=== PATIENT | female | born 1965 | race Caucasian/White ===

== ENCOUNTER → 2017-10-18 | Outpatient (CLI) | payer OTHER ==
--- NOTE | 2017-10-18 11:35 | BD ---
EXAMINATION TYPE: MG DEXA axial skeleton. DATE OF EXAM: 10/18/2017 COMPARISON: NONE CLINICAL HISTORY: Osteoporosis screening. Postmenopausal female. Height: 5'7 Weight: 233 FRAX RISK QUESTIONS: Alcohol (3 or more units per day): no Family History (Parent hip fracture): no Glucocorticoids (More than 3mos): no (Ex: prednisone, prednisolone, methylprednisolone, dexamethasone, and hydrocortisone). History of Fracture in Adulthood: no Secondary Osteoporosis: 1. Type 1 Diabetes: no 2. Hyperthyroidism: no 3. Menopause before 45: no 4. Malnutrition: no 5. Chronic liver disease: no Rheumatoid Arthritis: no Current Tobacco Use: no RISK FACTORS HISTORY OF: Family History of Osteoporosis: y Active: n Diet low in dairy products/other sources of calcium: y Postmenopausal woman: y MEDICATIONS: Additional Medications: type 2 diabetes, cholesterol ,ventolin Additional History: breast cancer 2012 EXAM MEASUREMENTS: Bone mineral densitometry was performed using the [employer] System. Bone mineral density as measured about the Lumbar spine is: ----- L1-L4(G/cm2): 1.270 T Score Values are as follows: ----- L2: 0.8 ----- L3: 1.0 ----- L4: -0.1 ----- L1-L4: 0.7 Bone mineral density about the R hip (g/cm2): 1.185 Bone mineral density about the L hip (g/cm2): 1.174 T Score values are as follows: -----R Neck: 1.1 -----L Neck: 1.0 -----R Total: 1.5 -----L Total: 1.7 IMPRESSION: Normal (Values between +1 and -1 indicate normal bone mass). Consider repeating this study in 5 year s or sooner if there is some new clinical indication. NOTE: T-SCORE=SD OF THE YOUNG ADULT MEAN.
== END | disposition home or self-care (01) ==
LOC: RADBDWWP 09:10
PROVIDERS: ATTEND Family Medicine
DX: Z78.0 Asymptomatic menopausal state (principal)
CPT/HCPCS: 77080

== ENCOUNTER → 2019-07-04 | Outpatient (CLI) | payer OTHER ==
--- NOTE | 2019-07-04 08:08 | CT ---
EXAMINATION TYPE: CT brain wo con DATE OF EXAM: 07/04/2019 COMPARISON: None HISTORY: Headache CT DLP: 1090.[address] of the brain was performed. The ventricles, basal cisterns and sulci overlying the cerebral convexities demonstrate mild enlargem ent. There is no evidence for intracranial hemorrhage or sulcal effacement. There is decreased attenuation about the periventricular white matter and deep white matter of both c erebral hemispheres, compatible with chronic small vessel ischemia. Differential diagnosis does inclu de demyelination. No mass effects are seen.No midline shift. Osseous calvarium is intact. If symptoms persist consider MRI. IMPRESSION: 1. Age related atrophic and chronic small vessel ischemic change without acute intracranial process s een at this time.
== END | disposition home or self-care (01) ==
LOC: RADCTMAIN 07:17
PROVIDERS: ATTEND Family Medicine
DX: G31.1 Senile degeneration of brain, not elsewhere classified (principal); I67.82 Cerebral ischemia
CPT/HCPCS: 70450

== ENCOUNTER → 2019-09-19 | Outpatient (CLI) | payer OTHER ==
[2019-09-19 07:38] LABS: African American GFR (CKD) >90 (>60 ml/min/1.73 sqM); Blood Urea Nitrogen 15 mg/dL (7-17); Non-African American GFR(CKD) >90 (>60 ml/min/1.73 sqM)
--- NOTE | 2019-09-19 08:55 | CT ---
EXAMINATION TYPE: CT chest w con DATE OF EXAM: 09/19/2019 COMPARISON: 10/14/2014 HISTORY: 53-year-old female Chest pain, dyspnea TECHNIQUE: Contiguous axial scanning of the chest after the administration of 100 ml mL of Isovue 300 . Coronal/sagittal reconstructions performed. CT DLP: 713mGycm. Automatic exposure control utilized for a dose reduction. FINDINGS: Heart size without pericardial effusion. Aorta normal caliber with variant direct takeoff of the left vertebral artery directly from the aorti c arch. No thoracic lymphadenopathy by CT size criteria. Lungs show some strandy areas of scarring anteromedial right mid lung. Stable 4 mm subpleural pulmonary nodule posterior right upper lobe compared to 2015 compatible with a benign etiology. Stable 4 mm left lower lobe pulmonary nodule, image 39. 3 mm posterior left upper lobe pulmonary nodule, axial image 11 not seen previously. Some mild mosaic attenuation in the right middle lobe. No consolidation or pleural effusion. Visualized upper abdomen shows low-density of the liver, suspected to represent fatty infiltration. C holecystectomy clips. Bones: No osseous destructive process. Incidental bifid right-sided sixth rib. IMPRESSION: 1. A few pulmonary nodules measuring up to 4 mm. One of these is new in the left upper lobe measuring 3 mm. Given small size, a 1 year follow-up CT is recommended to ensure stability. 2. Stable strandy scarring particularly in the right middle lobe. There is some mosaic attenuation he re as well. This may reflect underlying small airways disease.
== END | disposition home or self-care (01) ==
LOC: RADCTMAIN 06:57
PROVIDERS: ATTEND Family Medicine
DX: R91.8 Other nonspecific abnormal finding of lung field (principal); R06.00 Dyspnea, unspecified; M54.6 Pain in thoracic spine; Z85.3 Personal history of malignant neoplasm of breast
CPT/HCPCS: 82565; 84520; 71260; 36415; Q9967

== ENCOUNTER → 2020-02-13 | Outpatient (CLI) | payer OTHER ==
--- NOTE | 2020-02-13 12:43 | MR ---
EXAMINATION TYPE: MR brain wo/w con DATE OF EXAM: 02/13/2020 12:38 PM COMPARISON: NONE HISTORY: Possible MS, weakness, numbness FINDINGS: The ventricles, basal cisterns and sulci overlying the cerebral convexities are mildly enlarged. There is evidence of mild periventricular white matter ischemic demyelination. Remote deep white matter insults are also noted. Scattered small nonspecific white matter changes ju xtacortical lesions noted within both cerebral hemispheres estimated at 12-16 bilaterally. Demyelinat ion not excluded. No acute edema is seen on diffusion weighted imaging. There is no evidence for midline shift or mass effect. Acute intracranial hemorrhage or extra-axial collection is not evident. The paranasal sinuses and mastoid air cells are well-aerated. IMPRESSION: Age-related atrophic and chronic small vessel ischemic change. No acute intracranial process at this time. Demyelination difficult to exclude.
== END | disposition home or self-care (01) ==
LOC: RADMRIMAIN 11:28
PROVIDERS: ATTEND Family Medicine
DX: I67.82 Cerebral ischemia (principal); G31.9 Degenerative disease of nervous system, unspecified; G25.2 Other specified forms of tremor
CPT/HCPCS: 70553; A9585

== ENCOUNTER 2020-03-18 07:16 | Day surgery (SDC) | payer OTHER ==
[2020-03-13 12:59] VITALS: BMI 33.4
[~2020-03-18 07:16] MED LIST: LACTATED RINGERS 1,000 ML IV SCH; LIDOCAINE 1% (10MG/ML) FOR IV START INTRADERMA PRN
[2020-03-18 07:38] VITALS: TEMP 97.2
[2020-03-18 07:56] LABS: Glucose,Whole Blood 152 mg/dL (75-99)
[2020-03-18] MEDS ORDERED: PROPOFOL 10 MG/ML 20 ML VIAL IV ONE (08:02)
[2020-03-18] MEDS ORDERED: LIDOCAINE 1% INJ 10MG/ML (20 ML MDV) ONE (08:02)
--- NOTE | 2020-03-18 08:12 | P.GSHP ---
History of Present Illness H&P Date: 03/18/20 Chief Complaint: Dysphagia, change in bowel habits 54-year-old female known to our service. Last colonoscopy years ago. Family history of colon cancer in 2 aunts and a grandmother. History of polyps. Last colonoscopy just showed hyperplastic polyps. Colonoscopy prior to that unclear the type of polyps. Patient describes some recent constipation and incomplete evacuation. Also with complaints of dysphagia. Past Medical History Past Medical History: Asthma, Cancer, Diabetes Mellitus, Hyperlipidemia, Neurologic Disorder Additional Past Medical History / Comment(s): Hx Occipital neuralgia; c/o severe pain in posterior head, poss focal migraines, seeing Neurologist. Hx Breast cancer 2012, took po Rx. c/o dysphagia w/ food & fluids. History of Any Multi-Drug Resistant Organisms: None Reported Past Surgical History: Breast Surgery, Section, Cholecystectomy, Hysterectomy Additional Past Surgical History / Comment(s): Masectomy Bilat w/ reconstruction, CRISTI procedure, TAHBSO, Removal leukoplakia w/ Septoplasty. Past Anesthesia/Blood Transfusion Reactions: No Reported Reaction Smoking Status: Current some day smoker - Past Family History Mother Family Medical History: Cancer Additional Family Medical History / Comment(s): larynx cancer Father Family Medical History: Myocardial Infarction ([place]) Medications and Allergies Home Medications Medication Instructions Recorded Confirmed Type ALPRAZolam 0.5 mg PO BID PRN 10/23/14 03/18/20 History Albuterol Inhaler (Mhu) [Ventolin 2 puff INHALATION Q4H PRN 10/23/14 03/18/20 History Inhaler] Furosemide [Lasix] 20 mg PO DAILY PRN 10/23/14 03/18/20 History Atorvastatin [Lipitor] 80 mg PO HS 08/27/15 03/18/20 History Aspirin [Adult Low Dose Aspirin EC] 81 mg PO DAILY 03/13/20 03/18/20 History Cetirizine HCl [Zyrtec] 10 mg PO DAILY 03/13/20 03/18/20 History Docusate [Colace] 100 mg PO DAILY 03/13/20 03/18/20 History Dulaglutide [Trulicity] 1.5 mg SQ MO 03/13/20 03/18/20 History Gabapentin [Neurontin] 600 mg PO BID 03/13/20 03/18/20 History Gabapentin [Neurontin] 900 mg PO HS 03/13/20 03/18/20 History Ibuprofen [Motrin Ib] 200 mg PO Q8H PRN 03/13/20 03/18/20 History Vilazodone HCl [Viibryd] 20 mg PO DAILY 03/13/20 03/18/20 History Allergies Allergy/AdvReac Type Severity Reaction Status Date / Time adhesive tape Allergy Rash/Hives Verified 03/18/20 07:33 latex Allergy Rash/Hives Verified 03/18/20 07:33 Surgical - Exam Vital Signs Temp Pulse Resp BP Pulse Ox 97.2 F L 97 16 136/68 96 03/18/20 07:37 03/18/20 07:37 03/18/20 07:37 03/18/20 07:37 03/18/20 07:37 Physical exam: General: Well-developed, well-nourished HEENT: Normocephalic, sclerae nonicteric Abdomen: Nontender, nondistended Extremities: No edema Neuro: Alert and oriented Results - Labs Abnormal Lab Results - Last 24 Hours (Table) 03/18/20 Range/Units 07:47 POC Glucose (mg/dL) 152 H (75-99) mg/dL Assessment and Plan (1) Change in bowel habits Narrative/Plan: Will proceed with upper and lower endoscopy at this time. Current Visit: Yes Status: Acute Code(s): R19.4 - CHANGE IN BOWEL HABIT SNOMED Code(s): 313244349
--- NOTE | 2020-03-18 08:33 | P.PCN ---
Date of Procedure: 03/18/20 Procedure(s) Performed: PREOPERATIVE DIAGNOSIS: Dysphagia, change in bowel habits POSTOPERATIVE DIAGNOSIS: Mild gastritis, normal colon PROCEDURE: 1. EGD with biopsy 2. Colonoscopy ANESTHESIA: MAC SURGEON: Shashank Hendrix M.D. SPECIMENS: Antrum ENDOSCOPIC PROCEDURE: The patient was on the endoscopy table in the left decubitus position. The Olympus gastroscope was inserted into the oropharynx and passed under direct visualization to the region of the third portion of the duodenum. From that point the scope was slowly withdrawn inspecting all surfaces carefully. There were no neoplastic inflammatory or polypoid lesions throughout the duodenum. The pylorus was widely patent. The stomach was car efully inspected. There was mild gastritis present. A biopsy of the antrum took place to rule out H. pylori. Retroflexion revealed a normal hiatus. The esophagus was then carefully examined. There were no neoplastic inflammatory or polypoid lesions throughout the visualized esophagus. The patient was kept on the endoscopy table in the left decubitus position. The Olympus colonoscope was inserted into the anus and passed under direct visualization to the base of the cecum. The appendiceal orifice was visualized. From that point the scope was slowly withdrawn inspecting all surfaces carefully. There were no neoplastic inflammatory or polypoid lesions throughout the cecum, ascending, transverse, descending, sigmoid and rectum. There was no visible diverticulosis noted. Digital rectal examination was normal. The patient was taken to the recovery room in stable condition per anesthesia guidelines. RECOMMENDATIONS: Increase fiber. Consider modified barium swallow/esophagram if symptoms of dysphagia/aspiration persist.
[2020-03-18 08:48] LABS: Glucose,Whole Blood 116 mg/dL (75-99)
[2020-03-18 08:52] VITALS: BP 122/80; PULSE 77; RESP 16
== END 2020-03-18 09:08 | disposition home or self-care (01) ==
LOC: ORWHC2ENDO 07:16
PROVIDERS: ATTEND Surgery
DX: K29.70 Gastritis, unspecified, without bleeding (principal); R19.4 Change in bowel habit; Z86.010 Personal history of colon polyps; Z80.0 Family history of malignant neoplasm of digestive organs; E78.5 Hyperlipidemia, unspecified; E11.42 Type 2 diabetes mellitus with diabetic polyneuropathy; J45.909 Unspecified asthma, uncomplicated; F17.200 Nicotine dependence, unspecified, uncomplicated; Z91.040 Latex allergy status; Z91.048 Other nonmedicinal substance allergy status; Z79.1 Long term (current) use of non-steroidal anti-inflammatories (NSAID); Z79.82 Long term (current) use of aspirin; Z79.84 Long term (current) use of oral hypoglycemic drugs; Z79.899 Other long term (current) drug therapy; Z90.49 Acquired absence of other specified parts of digestive tract; Z90.710 Acquired absence of both cervix and uterus; Z90.13 Acquired absence of bilateral breasts and nipples; Z98.890 Other specified postprocedural states; Z85.3 Personal history of malignant neoplasm of breast; Z82.49 Family history of ischemic heart disease and other diseases of the circulatory system
CPT/HCPCS: 88305; 45378; 43239; J2001; J2704

== ENCOUNTER → 2020-03-25 | Outpatient (CLI) | payer OTHER ==
[2020-03-25 10:45] LABS: Basophils # (A) 0.1 k/uL (0-0.2); Basophils % (A) 1 %; Eosinophils # (A) 0.1 k/uL (0-0.7); Eosinophils % (A) 2 %; HCT 46.9 % (34.0-46.0); HGB 15.4 gm/dL (11.4-16.0); Lymphocytes # (A) 1.7 k/uL (1.0-4.8); Lymphocytes % (A) 32 %; MCH 29.3 pg (25.0-35.0); MCHC 32.9 g/dL (31.0-37.0); MCV 89.1 fL (80.0-100.0); Mean Platelet Volume 9.2; Monocytes # (A) 0.3 k/uL (0-1.0); Monocytes % (A) 5 %; Neutrophils # (A) 3.1 k/uL (1.3-7.7); Neutrophils % (A) 59 %; Platelet Count 189 k/uL (150-450); RBC 5.26 m/uL (3.80-5.40); RDW 13.1 % (11.5-15.5); WBC 5.2 k/uL (3.8-10.6)
[2020-03-25 11:10] LABS: Reticulocyte % 2.1 % (0.5-2.0)
[2020-03-25 17:27] LABS: % Iron Saturation 30.42 (12.00-45.00); African American GFR (CKD) 114.6 (60.0-200.0); Albumin 4.4 g/dL (3.80-4.90); Anion Gap 6.3 mmol/L (4.00-12.00); BUN/Creat Ratio 15.71 Ratio (12.00-20.00); Calcium 9.7 mg/dL (8.7-10.3); Carbon Dioxide 29.7 mmol/L (21.6-31.8); Globulin 2.2 g/dL (1.6-3.3); Non-African American GFR(CKD) 98.9 (60.0-200.0); Potassium 4.5 mmol/L (3.5-5.5); Total Bilirubin 0.5 mg/dL (0.2-1.2); Total Protein 6.6 g/dL (6.2-8.2)
[2020-03-25 17:37] LABS: Ferritin 132.1 ng/mL (10.0-291.0)
[2020-03-25 17:38] LABS: Folate, Serum 9.7 ng/mL
[2020-03-25 17:59] LABS: Hepatitis B Core IgM Non-Reactive (Non-Reactive); Hepatitis B Surface AB- Quant 291.2 mIU/mL; Hepatitis B Surface Antibody Reactive (Non-Reactive); Hepatitis B Surface Antigen Non-Reactive (Non-Reactive)
[2020-03-25 18:08] LABS: HIV 2 AB Non-Reactive (Non-Reactive); HIV AB P24 Non-Reactive (Non-Reactive); HIV P24 AG Non-Reactive (Non-Reactive)
[2020-03-25 18:15] LABS: Hemoglobin A1C 6.5 % (4.0-6.0)
[2020-03-26 06:01] LABS: Varicella IgM Antibody 0.47 INDEX (<=0.90)
[2020-03-27 13:33] LABS: IgG - CSF 2.7 mg/dL (0.0 - 3.4); IgG/Albumin Index (CSF) 0.49 (0.00 - 0.77); Immunoglobulin G 897 mg/dL (700 - 1600)
[2020-03-28 07:33] LABS: Vit B1(Thiamine) 61 ug/L (38-122)
== END | disposition home or self-care (01) ==
LOC: LABWHC1 09:31
PROVIDERS: ATTEND Psychiatry & Neurology Neurology
DX: G35 Multiple sclerosis (principal); D64.9 Anemia, unspecified; R53.83 Other fatigue; R90.82 White matter disease, unspecified
CPT/HCPCS: 36415; 80053; 82040; 82042; 82306; 82607; 82668; 82728; 82746; 82784; 83036; 83540; 83550; 83916; 84207; 84425; 84439; 84443; 84466; 84481; 84591; 85025; 85045; 86704; 86705; 86706; 86787; 87340; 87390

== ENCOUNTER → 2020-10-31 | Outpatient (CLI) | payer OTHER, MEDICARE ==
[2020-10-31 14:37] LABS: Reticulocyte % 1.83 % (0.10-1.80)
[2020-10-31 16:16] LABS: Anti-Smith Ab Interp NEGATIVE (NEGATIVE); Cyclic Citrull Pep IgG Unit <0.5 U/mL; Cyclic Citrullinated Pep IgG NEGATIVE (NEGATIVE); DNA Double-Stranded Indetermin (NEGATIVE); JO-1 IgG Antibody <0.2 AI; Scleroderma SC-70 Ab 1.3 AI
[2020-11-03 11:22] LABS: ANA Pattern See Footnote
== END | disposition home or self-care (01) ==
LOC: LABWHC1 08:27
PROVIDERS: ATTEND Psychiatry & Neurology Pain Medicine
DX: Z51.81 Encounter for therapeutic drug level monitoring (principal); G35 Multiple sclerosis; R90.82 White matter disease, unspecified; R79.9 Abnormal finding of blood chemistry, unspecified
CPT/HCPCS: 36415; 83516; 85045; 85652; 86038; 86039; 86140; 86200; 86225; 86235

== ENCOUNTER → 2020-11-14 | Outpatient (CLI) | payer MEDICARE, OTHER ==
--- NOTE | 2020-11-15 11:26 | US ---
EXAMINATION TYPE: US carotid duplex BILAT DATE OF EXAM: 11/14/2020 COMPARISON: NONE CLINICAL HISTORY: I65.2 Occlusion and stenosis of carotid artery. Hypercholesteremia. EXAM MEASUREMENTS: RIGHT: Peak Systolic Velocity (PSV) cm/sec ----- Right CCA: 109.0 ----- Right ICA: 95.2 ----- Right ECA: 118.9 ICA/CCA ratio: 0.9 RIGHT: End Diastole cm/sec ----- Right CCA: 32.8 ----- Right ICA: 24.8 ----- Right ECA: 20.4 LEFT: Peak Systolic Velocity (PSV) cm/sec ----- Left CCA: 96.5 ----- Left ICA: 119.8 ----- Left ECA: 99.4 ICA/CCA ratio: 1.2 LEFT: End Diastole cm/sec ----- Left CCA: 31.8 ----- Left ICA: 35.7 ----- Left ECA: 16.3 VERTEBRALS (direction of flow): Right Vertebral: Antegrade Left Vertebral: Antegrade Rhythm: Normal No significant velocity elevations, minimal plaque. No significant focal plaque on grayscale images. IMPRESSION: No hemodynamically significant stenosis identified in either internal carotid artery. Criteria for Assigning % of Stenosis / Diameter reduction (Estimation based on the indirect measurements of the internal carotid artery velocities (ICA PSV). 1. Normal (no stenosis)=ICA PSV < 125 cm/s: ratio < 2.0: ICA EDV<40 cm/s. 2. Less than 50% stenosis=ICA PSV < 125 cm/s: ratio < 2.0: ICA EDV<40 cm/s. 3. 50 to 69% stenosis=ICA PSV of 125 to 230 cm/s: ration 2.0 ? 4.0: ICA EDV 40-100 cm/s. 4. Greater than 70% stenosis to near occlusion= ICA PSV > 230 cm/s: ratio > 4.0: ICA EDV > 100 cm/s. 5. Near occlusion= ICA PSV velocities may be low or undetectable: variable ratio and ICA EDV. 6. Total occlusion=unable to detect flow.
== END | disposition home or self-care (01) ==
LOC: RADUSWWP 16:50
PROVIDERS: ATTEND Psychiatry & Neurology Neurology
DX: E78.00 Pure hypercholesterolemia, unspecified (principal)
CPT/HCPCS: 93880

== ENCOUNTER → 2021-08-12 | Outpatient (CLI) | payer MEDICARE, OTHER ==
--- NOTE | 2021-08-12 11:23 | CT ---
EXAMINATION TYPE: CT chest wo con DATE OF EXAM: 08/12/2021 COMPARISON: 09/19/2019 HISTORY: Lung Nodules, Breast CA CT DLP: 456.8 mGycm. Automated Exposure Control for Dose Reduction was Utilized. TECHNIQUE: CT scan of the thorax is performed without IV contrast. FINDINGS: LUNGS: The lungs are grossly clear, there is consolidative process identified. There is no pleural effusion or pneumothorax seen. The tracheobronchial tree is patent. Subsegmental changes left lung b ase most typical of scar or atelectasis. Vague posterior segment left lower lobe sub-5 mm density lik keisha inflammatory retrospectively stable. Stable subpleural 4 mm posterior right upper lobe pulmonary nodule stable and appears benign. Stable 4 mm left lower lobe pulmonary nodule. Thecal 3 mm posterior left upper lobe pulmonary nodule. MEDIASTINUM: Lack of IV contrast is noted to limit evaluation for mediastinal and especially hilar ad enopathy. There are no definitive greater than 1 cm hilar or mediastinal lymph nodes. No cardiomega ly or pericardial effusion is seen. Atherosclerotic change of the aorta and coronary arteries. OTHER: Postcholecystectomy changes noted. Hypertrophic and degenerative changes of the spine.. IMPRESSION: 1. Stable sub-5 mm bilateral pulmonary nodules unchanged from prior exam. No significant interval aram nge in size. Findings are most likely benign etiology. Additional 12 month annual follow-up could be obtained to confirm stability.
== END | disposition home or self-care (01) ==
LOC: RADCTMAIN 09:08
PROVIDERS: ATTEND Internal Medicine Pulmonary Disease
DX: R91.8 Other nonspecific abnormal finding of lung field (principal); C50.919 Malignant neoplasm of unspecified site of unspecified female breast
CPT/HCPCS: 71250

== ENCOUNTER → 2021-12-08 | Outpatient (CLI) | payer MEDICARE, OTHER ==
[2021-12-08 14:24] LABS: WBC 5.23 X 10*3/uL (4.50-10.00)
[2021-12-08 14:25] LABS: Basophils # (A) 0.02 X 10*3/uL (0.00-0.10); Basophils % (A) 0.4 %; Eosinophils # (A) 0.07 X 10*3/uL (0.04-0.35); Eosinophils % (A) 1.3 %; HCT 40.6 % (37.2-46.3); HGB 13.5 g/dL (12.0-15.0); Immature Grans, Automated 0.2 %; Lymphocytes # (A) 1.47 X 10*3/uL (0.90-5.00); Lymphocytes % (A) 28.1 %; MCH 30.3 pg (27.0-32.0); MCHC 33.3 g/dL (32.0-37.0); Mean Platelet Volume 12.2 fL (9.5-12.2); Monocytes # (A) 0.52 X 10*3/uL (0.20-1.00); Monocytes % (A) 9.9 %; NRBC Per 100 WBC 0 /100 WBCS (0.0-0.0); Neutrophils # (A) 3.14 X 10*3/uL (1.80-7.70); Neutrophils % (A) 60.1 %; Platelet Count 200 X 10*3/uL (140-440); RBC 4.46 X 10*6/uL (4.10-5.20); RDW 13.2 % (11.5-14.5)
[2021-12-08 15:44] LABS: ALT 30 U/L (8-44); AST 32 U/L (13-35); African American GFR (CKD) 118.9 (60.0-200.0); Albumin 4.2 g/dL (3.8-4.9); Albumin/Globulin Ratio 1.75 (1.60-3.17); Alkaline Phosphatase 86 U/L (41-126); BUN/Creat Ratio 20.67 Ratio (12.00-20.00); Blood Urea Nitrogen 12.4 mg/dL (9.0-27.0); Calcium 8.8 mg/dL (8.7-10.3); Chloride 108 mmol/L (96-109); Chol/HDL Ratio 3.78 Ratio; Globulin 2.4 g/dL (1.6-3.3); Glucose 108 mg/dL (70-110); LDL Cholesterol,Calculated 86.1 mg/dL (0.0-131.0); Non-African American GFR(CKD) 102.6 (60.0-200.0); Rheumatoid Factor, Qnt <10 IU/mL (0-15); Sodium 143 mmol/L (135-145); Total Protein 6.6 g/dL (6.2-8.2); VLDL Calculation 19.84 mg/dL (5.00-40.00)
[2021-12-09 00:33] LABS: Anti-Smith Ab Interp NEGATIVE (NEGATIVE); Cyclic Citrull Pep IgG Unit <0.5 U/mL; Cyclic Citrullinated Pep IgG NEGATIVE (NEGATIVE); DNA Double-Stranded Indetermin (NEGATIVE); JO-1 IgG Antibody <0.2 AI; Scleroderma SC-70 Ab 1.8 AI
== END | disposition home or self-care (01) ==
LOC: LABWHC1 09:16
PROVIDERS: ATTEND Nurse Practitioner Family
DX: Z00.01 Encounter for general adult medical examination with abnormal findings (principal); F06.4 Anxiety disorder due to known physiological condition; E78.5 Hyperlipidemia, unspecified; P83.88 Other specified conditions of integument specific to newborn
CPT/HCPCS: 36415; 80053; 80061; 83516; 84443; 85025; 86038; 86039; 86140; 86200; 86225; 86235; 86431

== ENCOUNTER → 2022-01-18 | Outpatient (CLI) | payer MEDICARE, OTHER ==
--- NOTE | 2022-01-18 09:43 | CT ---
EXAMINATION TYPE: CT chest wo con DATE OF EXAM: 01/18/2022 INDICATION: Nonspecific abnormal finding of lung field-pulmonary nodules-per pt CT DLP: 494.4 mGy.cm Automated Exposure Control for Dose Reduction was Utilized. TECHNIQUE AND CONTRAST: CT scan of the chest without IV contrast administration. COMPARISON: CT dated 08/12/2021 FINDINGS: Slightly more prominent nodule along the anterior aspect of the transverse fissure measuring 5 mm com pared to 4 mm previously. Other scattered bilateral pulmonary nodules measuring up to 4 mm, stable si nce September 2019 CT scan consistent with benign nodules. Scattered bilateral linear pulmonary atelec tasis. Unremarkable lungs otherwise. Patent trachea and main bronchi. No pleural or pericardial effusion. No gross cardiomegaly. Minimal arterial and coronary atherosclerotic calcifications. No pathologically enlarged lymph nodes in the chest. Previous cholecystectomy. No aggressive bone lesion. Bifid right s ixth rib. IMPRESSION: Slightly more prominent nodule along the anterior aspect of the transverse fissure measuring 5 mm com pared to 4 mm previously, possibly representing a fissural lymph node. Precautionary follow-up CT sca n in 6 months can be considered. Stable remainder of the previously seen pulmonary nodules. Other incidental findings as described abo ve.
== END | disposition home or self-care (01) ==
LOC: RADCTMAIN 07:31
PROVIDERS: ATTEND Internal Medicine Pulmonary Disease
DX: R91.8 Other nonspecific abnormal finding of lung field (principal)
CPT/HCPCS: 71250

== ENCOUNTER 2022-08-02 11:04 | Emergency (ER) | payer MEDICARE, OTHER ==
[2022-08-02 11:30] VITALS: RESP 18
--- NOTE | 2022-08-02 11:31 | ED ---
General Adult HPI - General Source: patient, RN notes reviewed Mode of arrival: ambulatory Limitations: no limitations <Mauricio Gould - Last Filed: 08/02/22 11:29> <Francis Nuñez - Last Filed: 08/02/22 22:35> - General Stated complaint: lt wrist injury Time Seen by Provider: 08/02/22 11:29 - History of Present Illness Initial comments: 56-year-old female presents emergency Department chief complaint left wrist pain. Patient states she slipped on some blinds [id number] for. Patient fell onto her left wrist. No head injury no loss conscious. Patient was left wrist pain. No paresthesias. (Mauricio Gould) - Related Data Home Medications Medication Instructions Recorded Confirmed ALPRAZolam 0.5 mg PO BID PRN 10/23/14 03/18/20 Albuterol Inhaler [Ventolin 2 puff INHALATION Q4H PRN 10/23/14 03/18/20 Inhaler] Furosemide [Lasix] 20 mg PO DAILY PRN 10/23/14 03/18/20 Atorvastatin [Lipitor] 80 mg PO HS 08/27/15 03/18/20 Aspirin [Adult Low Dose Aspirin EC] 81 mg PO DAILY 03/13/20 03/18/20 Cetirizine HCl [Zyrtec] 10 mg PO DAILY 03/13/20 03/18/20 Docusate [Colace] 100 mg PO DAILY 03/13/20 03/18/20 Dulaglutide [Trulicity] 1.5 mg SQ MO 03/13/20 03/18/20 Gabapentin [Neurontin] 600 mg PO BID 03/13/20 03/18/20 Gabapentin [Neurontin] 900 mg PO HS 03/13/20 03/18/20 Ibuprofen [Motrin Ib] 200 mg PO Q8H PRN 03/13/20 03/18/20 Vilazodone HCl [Viibryd] 20 mg PO DAILY 03/13/20 03/18/20 Previous Rx's Medication Instructions Recorded Ibuprofen [Motrin] 600 mg PO Q8HR PRN #30 tab 08/02/22 Allergies Allergy/AdvReac Type Severity Reaction Status Date / Time adhesive tape Allergy Rash/Hives Verified 08/02/22 11:30 latex Allergy Rash/Hives Verified 08/02/22 11:30 Review of Systems ROS Other: All systems not noted in ROS Statement are negative. <Mauricio Gould M - Last Filed: 08/02/22 11:29> ROS Other: All systems not noted in ROS Statement are negative. <Francis Nuñez - Last Filed: 08/02/22 22:35> ROS Statement: Those systems with pertinent positive or pertinent negative responses have been documented in the HPI. Past Medical History Past Medical History: Diabetes Mellitus, Hyperlipidemia, Neurologic Disorder, Respiratory Disorder Additional Past Medical History / Comment(s): asthma, occipital neuralgia History of Any Multi-Drug Resistant Organisms: None Reported Past Surgical History: Section, Cholecystectomy Additional Past Surgical History / Comment(s): masectomy double, CRISTI procedure, TAHSPO Past Anesthesia/Blood Transfusion Reactions: No Reported Reaction Past Psychological History: Anxiety, Panic Disorder Past Alcohol Use History: None Reported - Past Family History Mother Family Medical History: Cancer Father Family Medical History: Myocardial Infarction ([place]) <Mauricio Gould - Last Filed: 08/02/22 11:29> General Exam General appearance: alert, in no apparent distress Head exam: Present: atraumatic Eye exam: Absent: scleral icterus, conjunctival injection, periorbital swelling Neck exam: Absent: meningismus Respiratory exam: Absent: respiratory distress, accessory muscle use Cardiovascular Exam: Present: regular rate Left Shoulder Exam: Absent: tenderness Upper Arm exam: Absent: tenderness Elbow exam: Present: full ROM. Absent: tenderness, swelling Forearm Wrist exam: Present: tenderness, swelling. Absent: laceration, ecchymosis, deformity, crepitus, dislocation, erythema, tenderness over anatomical snuff box, pain with axial thumb loading Hand Wrist exam: Present: swelling. Absent: erythema Neuro motor exam: Absent: wrist extension intact Neurosensory exam: Present: radial nerve intact, ulnar nerve intact, median nerve intact Vascular: Present: normal capillary refill, radial pulse. Absent: vascular compromise Neurological exam: Present: alert, oriented X3 Psychiatric exam: Present: normal affect, normal mood Skin exam: Present: warm, dry, normal color. Absent: cyanosis, diaphoretic, petechiae, pallor <Francis Nuñez - Last Filed: 08/02/22 22:35> Course Vital Signs 08/02/22 08/02/22 11:28 13:17 Temperature 98 F 98.0 F Pulse Rate 96 80 Respiratory 18 18 Rate Blood Pressure 174/114 147/86 O2 Sat by Pulse 99 96 Oximetry Procedures - Orthopedic Splinting/Casting Injury #1 Side: left Upper Extremity Injury Location: short arm, wrist Upper Extremity Immobilizer: Cl wrap, synthetic pre-padded splint <Francis Nuñez - Last Filed: 08/02/22 22:35> Medical Decision Making <Francis Nuñez - Last Filed: 08/02/22 22:35> - Medical Decision Making Vital signs are stable. Patient was given Toradol for pain. Left wrist x-ray was completed and interpreted by me showing no evidence of fracture. Radiologist interpretation no acute fracture or dislocation. Recommend follow-up study in 7-10 days. Due to pain and swelling, patient was placed in a short arm splint and directed to follow up with orthopedics. Rest ice elevate and Motrin for pain. Patient is agreeable to this plan of care Neurovascularly intact prior to and post splinting. Case discussed with Dr. Galvan Patient has history of diabetes, asthma hyperlipidemia Was pt. sent in by a medical professional or institution? @ No Did you speak to anyone other than the patient for history? @ No Did you review nursing and triage notes? @ Yes I agree Were old charts reviewed? @ No Differential Diagnosis? @ Sprain or strain, fracture, dislocation, musculoskeletal pain, contusion EKG interpreted by me (3pts min.)? @ Not applicable X-rays interpreted by me (1pt min.)? @ Yes as above CT interpreted by me (1pt min.)? @ Not applicable U/S interpreted by me (1pt. min.)? @ Not applicable What testing was considered but not performed? (CT, X-rays, U/S, labs)? Why? @ None What meds were considered but not given? Why? @ None Did you discuss the management of the patient with other professionals? @ No Did you reconcile home meds? @ No Was smoking cessation discussed for >3mins.? @ Not applicable Was critical care preformed (if so, how long)? @ No Were there social determinants of health that impacted care today? How? (Homelessness, low income, unemployed, alcoholism, drug addiction, transportation, low edu. Level, literacy, decrease access to med. care, [facility], rehab)? @ None Was there de-escalation of care discussed even if they declined? (Discuss DNR or withdrawal of care, Hospice)? @ No What co-morbidities impacted this encounter? (DM, HTN, Smoking, COPD, CAD, Cancer, CVA, Hep., AIDS, mental health diagnosis, sleep apnea, morbid obesity)? @ Diabetes, hyperlipidemia, asthma Was patient admitted / discharged? @ Discharged Undiagnosed new problem with uncertain prognosis? @ [none] Drug Therapy requiring intensive monitoring for toxicity (Heparin, Nitro, Insulin, Cardizem)? @ No Were any procedures done? @ Short arm splint applied Diagnosis/symptom? @ Wrist sprain Acute, or Chronic, or Acute on Chronic? @ Acute Uncomplicated (without systemic symptoms) or Complicated (systemic symptoms)? @ Uncomplicated Side effects of treatment? @ [none] Exacerbation, Progression, or Severe Exacerbation] @ [no] Poses a threat to life or bodily function? @ [no] (Francis Nuñez) Disposition <Mauricio Gould - Last Filed: 08/02/22 11:29> Is patient prescribed a controlled substance at d/c from ED?: No Time of Disposition: 12:57 <Francis Nuñez - Last Filed: 08/02/22 22:35> Clinical Impression: Left wrist injury Disposition: HOME SELF-CARE Condition: Good Instructions (If sedation given, give patient instructions): Wrist Injury (ED) Additional Instructions: Rest, ice, elevate and wear splint until seen by orthopedics. Tylenol and Motrin as needed for pain or discomfort. Return to the emergency room with any new or concerning symptoms. Prescriptions: Ibuprofen [Motrin] 600 mg PO Q8HR PRN #30 tab PRN Reason: Pain Referrals: Antonia Pinzon III, MD [Primary Care Provider] - 1-2 days Mauricio Clement DO [Doctor of Osteopathic Medicine] - 1-2 days
[2022-08-02] MEDS ORDERED: IBUPROFEN 600 MG TAB PO STA (12:31)
--- NOTE | 2022-08-02 12:32 | XR ---
EXAMINATION TYPE: XR wrist complete LT DATE OF EXAM: 08/02/2022 COMPARISON: NONE HISTORY: Pain TECHNIQUE: Four views submitted. FINDINGS: The osseous structures are intact. The joint spaces are preserved and there is no acute fracture or dislocation. IMPRESSION: 1. No definite acute fracture or dislocation if symptoms persist, follow-up study in 7 to 10 days wo uld be suggested
[2022-08-02] MEDS ORDERED: KETOROLAC 15 MG/ML 1 ML VIAL IM STA (12:55)
[2022-08-02 13:21] VITALS: BP 147/86; PULSE 80; TEMP 98
== END 2022-08-02 13:17 | disposition home or self-care (01) ==
LOC: EC 11:04
DX: S69.92XA Unspecified injury of left wrist, hand and finger(s), initial encounter (principal); E11.9 Type 2 diabetes mellitus without complications; E78.5 Hyperlipidemia, unspecified; F41.9 Anxiety disorder, unspecified; Z91.048 Other nonmedicinal substance allergy status; Z91.040 Latex allergy status; Z79.84 Long term (current) use of oral hypoglycemic drugs; Z79.899 Other long term (current) drug therapy; Z79.82 Long term (current) use of aspirin; W01.0XXA Fall on same level from slipping, tripping and stumbling without subsequent striking against object, initial encounter
CPT/HCPCS: 73110; 99283; 96372; J1885

== ENCOUNTER 2023-06-07 17:23 | Emergency (ER) | payer MEDICARE, OTHER ==
[2023-06-07] MEDS ORDERED: LIDOCAINE 1% INJ 10MG/ML (20 ML MDV) SQ STA (18:12)
[2023-06-07] MEDS ORDERED: CEPHALEXIN 500 MG CAP PO STA (18:12)
--- NOTE | 2023-06-07 18:16 | ED ---
Wound/Laceration HPI - General Chief Complaint: Wound/Laceration Stated Complaint: left hand injury Time Seen by Provider: 06/07/23 18:09 Source: patient, RN notes reviewed Mode of arrival: ambulatory Limitations: no limitations - History of Present Illness Initial Comments: This is a [id number] 57-year-old male who was using a Skill-saw prior to arrival. Patient may either nicked herself with a saw when she was cutting. She has a laceration to distal aspect of the left middle finger involving the nail plate. There injuries. Patient is a cigarette smokers and is a diabetic as well. States her last tetanus was updated last year. No other injuries. No other complaints. No distal or proximal injuries. No distal paresthesias. - Related Data Home Medications Medication Instructions Recorded Confirmed ALPRAZolam 0.5 mg PO BID PRN 10/23/14 03/18/20 Albuterol Inhaler [Ventolin 2 puff INHALATION Q4H PRN 10/23/14 03/18/20 Inhaler] Furosemide [Lasix] 20 mg PO DAILY PRN 10/23/14 03/18/20 Atorvastatin [Lipitor] 80 mg PO HS 08/27/15 03/18/20 Aspirin [Adult Low Dose Aspirin EC] 81 mg PO DAILY 03/13/20 03/18/20 Cetirizine HCl [Zyrtec] 10 mg PO DAILY 03/13/20 03/18/20 Docusate [Colace] 100 mg PO DAILY 03/13/20 03/18/20 Dulaglutide [Trulicity] 1.5 mg SQ MO 03/13/20 03/18/20 Gabapentin [Neurontin] 600 mg PO BID 03/13/20 03/18/20 Gabapentin [Neurontin] 900 mg PO HS 03/13/20 03/18/20 Ibuprofen [Motrin Ib] 200 mg PO Q8H PRN 03/13/20 03/18/20 Vilazodone HCl [Viibryd] 20 mg PO DAILY 03/13/20 03/18/20 Previous Rx's Medication Instructions Recorded Ibuprofen [Motrin] 600 mg PO Q8HR PRN #30 tab 08/02/22 Cephalexin [Keflex] 500 mg PO Q6HR #40 cap 06/07/23 Allergies Allergy/AdvReac Type Severity Reaction Status Date / Time adhesive tape Allergy Rash/Hives Verified 08/02/22 11:30 latex Allergy Rash/Hives Verified 08/02/22 11:30 Review of Systems ROS Statement: Those systems with pertinent positive or pertinent negative responses have been documented in the HPI. ROS Other: All systems not noted in ROS Statement are negative. Past Medical History Past Medical History: Diabetes Mellitus, Hyperlipidemia, Neurologic Disorder, Respiratory Disorder Additional Past Medical History / Comment(s): asthma, occipital neuralgia History of Any Multi-Drug Resistant Organisms: None Reported Past Surgical History: Section, Cholecystectomy Additional Past Surgical History / Comment(s): masectomy double, CRISTI procedure, TAHSPO Past Anesthesia/Blood Transfusion Reactions: No Reported Reaction Past Psychological History: Anxiety, Panic Disorder Past Alcohol Use History: None Reported - Past Family History Mother Family Medical History: Cancer Father Family Medical History: Myocardial Infarction (DC) General Exam - General Exam Comments Initial Comments: Patient alert and oriented 4, cranial nerves II through XII grossly intact. Does not appear to be ill or toxic. Vital signs reviewed. Minimally hypertensive. Capillary refill less than 2 seconds. Limitations: no limitations General appearance: alert, in no apparent distress Head exam: Present: atraumatic, normocephalic, normal inspection Eye exam: Present: normal appearance, PERRL, EOMI. Absent: scleral icterus, conjunctival injection, periorbital swelling ENT exam: Present: normal exam, mucous membranes moist Neck exam: Present: normal inspection. Absent: tenderness, meningismus, lymphadenopathy Respiratory exam: Present: normal lung sounds bilaterally. Absent: respiratory distress, wheezes, rales, rhonchi, stridor Cardiovascular Exam: Present: regular rate, normal rhythm, normal heart sounds. Absent: systolic murmur, diastolic murmur, rubs, gallop, clicks GI/Abdominal exam: Present: soft, normal bowel sounds. Absent: distended, tenderness, guarding, rebound, rigid Extremities exam: Present: full ROM, normal capillary refill. Absent: tenderness, pedal edema, joint swelling, calf tenderness Left Elbow exam: Present: normal inspection Forearm Wrist exam: Present: normal inspection Hand Wrist exam: Present: laceration (Laceration involving the distal aspect left middle finger involving the nail plate. Sensation intact. Hemostasis obtained.) Neuro motor exam: Present: wrist extension intact Neurosensory exam: Present: 2-point discrimination, radial nerve intact, ulnar nerve intact, median nerve intact Vascular: Present: normal capillary refill. Absent: vascular compromise, Pallo, pulse deficit radial art, pulse deficit ulnar art, pulse deficit brachial art Back exam: Present: normal inspection Neurological exam: Present: alert, oriented X3, CN II-XII intact Psychiatric exam: Present: normal affect, normal mood Skin exam: Present: warm, dry, intact, normal color. Absent: rash Course Vital Signs 06/07/23 17:54 Temperature 98 F Pulse Rate 92 Respiratory 20 Rate Blood Pressure 150/83 O2 Sat by Pulse 98 Oximetry Procedures - Laceration Laceration #1 Consent Obtained: verbal consent Indication: laceration Site: hand (Left middle finger, distal phalanx area, involves nail matrix area) Size (cm): 3 Description: irregular Depth: simple, single layer Anesthetic Used: lidocaine 1% Anesthesia Technique: nerve block (Digital block left middle finger) Amount (mls): 3 Pre-repair: wound explored, irrigated extensively, deep structures intact Type of Sutures: nylon Size of Sutures: 5-0 Number of Sutures: 4 Technique: simple, interrupted Patient Tolerated Procedure: no complications Medical Decision Making - Medical Decision Making Was pt. sent in by a medical professional or institution? @ -no Did you speak to anyone other than the patient for history? @ -[EMS, parent, family, police, friend?]no Did you review nursing and triage notes? @ -[agree or disagree, why?] Agree Were old charts reviewed? @ -no Differential Diagnosis? @ -Simple laceration, nail disruption, open fracture, tendon injury, nerve injury, does not appear to be consistent with foreign body or infectious process. Neurovascular intact. EKG interpreted by me (3pts min.)? @ -[none] X-rays interpreted by me (1pt min.)? @ -Comminuted fracture, left middle finger, independent interpretation by me, see ED course CT interpreted by me (1pt min.)? @ -[none] U/S interpreted by me (1pt. min.)? @ -[none] What testing was considered but not performed? (CT, X-rays, U/S, labs)? Why? @ no What meds were considered but not given? Why? @ -[none] Did you discuss the management of the patient with other professionals? @ -The case was discussed in detail with ED attending physician. Presentation, findings, treatment plan discussed in detail. Did you reconcile home meds? @ -[none] Was smoking cessation discussed for >3mins.? @ -I discussed smoking cessation for greater than 3 minutes. The risks of smoking were discussed with the patient including but not limited to risks of cancer, stroke, coronary artery disease and COPD. Also discussed with the patient were multiple methods of quitting smoking. Lastly we discussed the financial costs of smoking. Was critical care preformed (if so, how long)? @ -no Were there social determinants of health that impacted care today? How? (Home lessness, low income, unemployed, alcoholism, drug addiction, transportation, low edu. Level, literacy, decrease access to med. care, correction, rehab)? @ -No apparent Was there de-escalation of care discussed even if they declined? (Discuss DNR or withdrawal of care, Hospice)? @ -[Discuss DNR or withdrawal of care, Hospice?] What co-morbidities impacted this encounter? (DM, HTN, Smoking, COPD, CAD, Cancer, CVA, Hep., AIDS, mental health diagnosis, sleep apnea, morbid obesity)? @ -Diabetes mellitus, cigarette smoking Was patient admitted / discharged? @ -Stable Undiagnosed new problem with uncertain prognosis? @ -. Does not appear to life or bodily function. Infectious process is a concern Drug Therapy requiring intensive monitoring for toxicity (Heparin, Nitro, Insulin, Cardizem)? @ -[none] Were any procedures done? @ -Laceration repair Diagnosis/symptom? @ -Laceration left middle finger distal phalanx with damage to the nail matrix Acute, or Chronic, or Acute on Chronic? @ -Acute Uncomplicated (without systemic symptoms) or Complicated (systemic symptoms)? @ -Uncomplicated Side effects of treatment? @ -[none] Exacerbation, Progression, or Severe Exacerbation] @ -[no] Poses a threat to life or bodily function? @ -Unlikely Patient was told to return to the ER for any signs or symptoms worsen. Told to return immediately if any other problems arise. All questions answered. Treatment plan discussed. Patient in agreement Every effort has been made to ensure accuracy of this dictation. However, due to the limitations of electronic medical records and dictation devices, errors in charting still occur. We'll treat with cephalexin 500 mg 4 times a day for 10 days. - Radiology Data Radiology results: pending Independent interpretation of the radiograph by me shows a comminuted fracture distal phalanx left middle finger Disposition Clinical Impression: Open fracture of distal phalanx of left middle finger, Laceration of left middle finger with damage to nail, Nicotine addiction, Abscess Disposition: HOME SELF-CARE Condition: Stable Instructions (If sedation given, give patient instructions): Laceration (ED), Finger Fracture (ED), How to Stop Smoking (ED) Additional Instructions: Wash the wound daily with warm soapy water. Cover with thin layer of antibiotic ointment such as Neosporin or triple antibiotic ointment. Call tomorrow morning to make a follow-up appointment with the hand surgeon, Dr. Hobson. Take the antibiotics as directed. Suture removal per orthopedics Follow-up with the orthopedic physician as directed. Return to the ER immediately if any symptoms worsen, new symptoms arise, or any other problems develop. Prescriptions: Cephalexin [Keflex] 500 mg PO Q6HR #40 cap Is patient prescribed a controlled substance at d/c from ED?: No When asked, does pt state using other controlled substances?: No Referrals: Noble Dougherty MD [Primary Care Provider] - 1-2 days Davonte Hobson DO [Doctor of Osteopathic Medicine] - 06/07/23 8:00 am (Call tomorrow to schedule a follow-up appointment) Time of Disposition: 19:11
--- NOTE | 2023-06-07 19:10 | XR ---
EXAMINATION TYPE: XR finger LT DATE OF EXAM: 06/07/2023 6:57 PM CLINICAL INDICATION:Female, 57 years old with history of LEFT middle finger injury/pain; [facility] COMPARISON: None TECHNIQUE: XR finger LT Frontal, lateral and oblique views were obtained. FINDINGS/IMPRESSION: Comminuted Tuft fracture of the third digit distal phalanx with mild distortion of the fragments. No additional fractures. There is soft tissue swelling.
[2023-06-07] MEDS ORDERED: BACITRACIN ZINC 500 UNIT/GM OINT 28.4 GM TUBE TOPICAL STA (19:11)
[2023-06-07 20:37] VITALS: BP 136/79; PULSE 68; RESP 18; TEMP 98.1
== END 2023-06-07 20:22 | disposition home or self-care (01) ==
LOC: EC 17:23
DX: S62.633B Displaced fracture of distal phalanx of left middle finger, initial encounter for open fracture (principal); E11.9 Type 2 diabetes mellitus without complications; E78.5 Hyperlipidemia, unspecified; F41.9 Anxiety disorder, unspecified; Z79.899 Other long term (current) drug therapy; Z79.82 Long term (current) use of aspirin; Z91.040 Latex allergy status; Z91.09 Other allergy status, other than to drugs and biological substances; W26.8XXA Contact with other sharp object(s), not elsewhere classified, initial encounter
CPT/HCPCS: 73140; 12002; 99283; 99406; J2001

== ENCOUNTER 2023-10-07 15:17 | Emergency (ER) | payer MEDICARE, OTHER ==
[2023-10-07 15:40] VITALS: TEMP 97.8
[2023-10-07] MEDS: SODIUM CHLORIDE 0.9% 1,000 ML IV ONE (17:02)
[2023-10-07] MEDS: ONDANSETRON 4 MG/2 ML VIAL IVP STA (17:02)
[2023-10-07 17:16] LABS: Basophils % (A) 0 %; Eosinophils # (A) 0.2 k/uL (0-0.7); Eosinophils % (A) 2 %; HCT 47.3 % (34.0-46.0); HGB 16.9 gm/dL (11.4-16.0); Lymphocytes # (A) 1.4 k/uL (1.0-4.8); Lymphocytes % (A) 13 %; MCH 32.5 pg (25.0-35.0); MCHC 35.7 g/dL (31.0-37.0); Mean Platelet Volume 9.3; Monocytes # (A) 0.5 k/uL (0-1.0); Monocytes % (A) 5 %; Neutrophils # (A) 8.4 k/uL (1.3-7.7); Neutrophils % (A) 79 %; Platelet Count 207 k/uL (150-450); RBC 5.19 m/uL (3.80-5.40); RDW 12.4 % (11.5-15.5); WBC 10.7 k/uL (3.8-10.6)
[2023-10-07 17:31] LABS: ALT 27 U/L (4-34); AST 25 U/L (14-36); African American GFR (CKD) >90 (>60 ml/min/1.73 sqM); Albumin 4.5 g/dL (3.5-5.0); Alkaline Phosphatase 80 U/L (38-126); Anion Gap 10 mmol/L; Blood Urea Nitrogen 16 mg/dL (7-17); Carbon Dioxide 26 mmol/L (22-30); Chloride 105 mmol/L (98-107); Glucose 152 mg/dL (74-99); Lipase 50 U/L (23-300); Non-African American GFR(CKD) >90 (>60 ml/min/1.73 sqM); Potassium 3.9 mmol/L (3.5-5.1); Sodium 141 mmol/L (137-145); Total Bilirubin 0.6 mg/dL (0.2-1.3); Total Protein 7.1 g/dL (6.3-8.2)
[2023-10-07 17:44] LABS: Appearance,Urine Turbid (Clear); Bilirubin,Urine Negative (Negative); Blood,Urine Negative (Negative); Color,Urine Yellow; Glucose,Urine (UA) Negative (Negative); Ketones,Urine 1+ (Negative); Leukocyte Esterase,Urine Trace (Negative); Nitrite,Urine Negative (Negative); PH, Urine 5.5 (5.0-8.0); Protein,Urine Trace (Negative); Specific Gravity,Urine 1.032 (1.001-1.035)
--- NOTE | 2023-10-07 18:59 | CT ---
EXAMINATION TYPE: CT ChestAbdPelvis w con DATE OF EXAM: 10/07/2023 COMPARISON: Chest 01/18/2022 HISTORY: 57-year-old female vomiting, abdominal pain, bloating, diarrhea TECHNIQUE: Contiguous axial scanning of the chest, abdomen, and pelvis performed with IV Contrast, pa tient injected with 100 ml mL of Isovue 300. Delayed images through the kidneys were obtained. Thomas l/sagittal reconstructions performed. CT DLP: 1528.6 mGycm Automated exposure control for dose reduction was used. FINDINGS: Chest: Heart normal size without pericardial effusion. 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 No thoracic lymphadenopathy by CT size criteria. A couple scattered pulmonary nodules measuring up to 5 mm remain unchanged from 2021 suggesting a kyler ign etiology. No consolidation or pleural effusion. ABDOMEN: Liver borderline in size at 17.4 cm. Marked diffuse diminished liver parenchyma attenuation. Portal v enous system is patent. No biliary ductal dilatation. Cholecystectomy clips. Adrenal glands, right kidney, spleen, and pancreas within normal limits. Tiny hilar splenule. Small 7 mm cortical cyst left kidney. Distended left abdominal jejunal loops up to 3.2 cm and containing prominent fluid. No discrete trans ition point is seen. Additional fluid extending into the right side of the colon. Some additional sca ttered liquid stool within other portions of the left side of the colon. Redundant sigmoid colon. No pericolonic inflammatory change. Normal appendix. No mesenteric or retroperitoneal lymphadenopathy. Pelvis: Bladder is collapsed. Uterus surgically absent. There is a nodule within the right side of the pelvis measuring 1.2 cm. Etiology unclear. Possible sm all ovary. Recommend three-month follow-up CT to reassess if ovaries are known to be surgically absen t. No abnormal fluid collection in the pelvis are otherwise any pelvic lymphadenopathy seen. Bones: Moderate degenerative change right hip and mild at the left hip. Facet arthropathy mid to lower lumba r spine. Mild degenerative disc disease lower thoracic spine. No osseous destructive process. IMPRESSION: 1. BORDERLINE HEPATOMEGALY WITH SEVERE HEPATIC STEATOSIS. APPROPRIATE CLINICAL MANAGEMENT IS ADVISED. 2. DISTENDED AND FLUID-FILLED JEJUNAL LOOPS. ADDITIONAL FLUID-FILLED SMALL BOWEL LOOPS IN THE RIGHT S ALICIA OF THE ABDOMEN AND SCATTERED LIQUID STOOL THROUGHOUT THE COLON. CORRELATE FOR A NONSPECIFIC ILEUS OR ENTERITIS. 3. AN INDETERMINATE 1.2 CM NODULE IN THE RIGHT SIDE OF THE PELVIS. This MAY REPRESENT A SMALL OVARY. IF THE OVARIES ARE SURGICALLY ABSENT, RECOMMEND THREE-MONTH FOLLOW-UP CT TO ENSURE STABILITY.
--- NOTE | 2023-10-07 19:22 | ED ---
Abdominal Pain HPI - General Chief Complaint: Abdominal Pain Stated Complaint: Vomiting,Diarrhea Time Seen by Provider: 10/07/23 15:20 Source: patient Mode of arrival: ambulatory Limitations: no limitations - History of Present Illness Initial Comments: 57-year-old female who presents to the emergency department reporting nausea, vomiting and diarrhea. Patient states that she has had chronic issues for 2 years however she will have episodes where her symptoms are significant. States that she has been unable to hold down any food or drink in the past several days. She attempted to take some Imodium without any relief. Denies history of EGD or colonoscopy. Denies hematemesis. No black or bloody stools. Denies any sick contacts with similar symptoms. No recent antibiotic use. Denies any fevers. No urinary complaints to include dysuria, hematuria or difficulty voiding. No other alleviating, precipitating or modifying factors - Related Data Home Medications Medication Instructions Recorded Confirmed ALPRAZolam 0.5 mg PO BID PRN 10/23/14 03/18/20 Albuterol Inhaler [Ventolin 2 puff INHALATION Q4H PRN 10/23/14 03/18/20 Inhaler] Furosemide [Lasix] 20 mg PO DAILY PRN 10/23/14 03/18/20 Atorvastatin [Lipitor] 80 mg PO HS 08/27/15 03/18/20 Aspirin [Adult Low Dose Aspirin EC] 81 mg PO DAILY 03/13/20 03/18/20 Cetirizine HCl [Zyrtec] 10 mg PO DAILY 03/13/20 03/18/20 Docusate [Colace] 100 mg PO DAILY 03/13/20 03/18/20 Dulaglutide [Trulicity] 1.5 mg SQ MO 03/13/20 03/18/20 Gabapentin [Neurontin] 600 mg PO BID 03/13/20 03/18/20 Gabapentin [Neurontin] 900 mg PO HS 03/13/20 03/18/20 Ibuprofen [Motrin Ib] 200 mg PO Q8H PRN 03/13/20 03/18/20 Vilazodone HCl [Viibryd] 20 mg PO DAILY 03/13/20 03/18/20 Previous Rx's Medication Instructions Recorded Ibuprofen [Motrin] 600 mg PO Q8HR PRN #30 tab 08/02/22 Cephalexin [Keflex] 500 mg PO Q6HR #40 cap 06/07/23 Diphenoxylate HCl/Atropine 2 tab PO QID PRN #24 tab 10/07/23 [Lomotil 2.5-0.025 mg Tablet] Ondansetron Odt [Zofran Odt] 4 mg PO Q8HR PRN #20 tab 10/07/23 Allergies Allergy/AdvReac Type Severity Reaction Status Date / Time adhesive tape Allergy Rash/Hives Verified 08/02/22 11:30 latex Allergy Rash/Hives Verified 08/02/22 11:30 Review of Systems ROS Statement: Those systems with pertinent positive or pertinent negative responses have been documented in the HPI. ROS Other: All systems not noted in ROS Statement are negative. Past Medical History Past Medical History: Diabetes Mellitus, Hyperlipidemia, Neurologic Disorder, Respiratory Disorder Additional Past Medical History / Comment(s): asthma, occipital neuralgia, autoimmune disorder of the connective tissue History of Any Multi-Drug Resistant Organisms: None Reported Past Surgical History: Section, Cholecystectomy Additional Past Surgical History / Comment(s): masectomy double, CRISTI procedure, TAHSPO Past Anesthesia/Blood Transfusion Reactions: No Reported Reaction Past Psychological History: Anxiety, Panic Disorder Smoking Status: Current every day smoker Past Alcohol Use History: None Reported Past Drug Use History: None Reported - Past Family History Mother Family Medical History: Cancer Father Family Medical History: Myocardial Infarction ([place]) General Exam Limitations: no limitations General appearance: alert, in no apparent distress Head exam: Present: atraumatic, normocephalic, normal inspection Eye exam: Present: normal appearance, PERRL, EOMI. Absent: scleral icterus, conjunctival injection, periorbital swelling ENT exam: Present: normal exam, mucous membranes moist Neck exam: Present: normal inspection. Absent: tenderness, meningismus, lymphadenopathy Respiratory exam: Present: normal lung sounds bilaterally. Absent: respiratory distress, wheezes, rales, rhonchi, stridor Cardiovascular Exam: Present: regular rate, normal rhythm, normal heart sounds. Absent: systolic murmur, diastolic murmur, rubs, gallop, clicks GI/Abdominal exam: Present: soft, normal bowel sounds. Absent: distended, tenderness, guarding, rebound, rigid Extremities exam: Present: normal inspection, full ROM, normal capillary refill. Absent: tenderness, pedal edema, joint swelling, calf tenderness Back exam: Present: normal inspection Neurological exam: Present: alert, oriented X3, CN II-XII intact Psychiatric exam: Present: normal affect, normal mood Skin exam: Present: warm, dry, intact, normal color. Absent: rash Course Vital Signs 10/07/23 10/07/23 15:19 19:36 Temperature 97.8 F Pulse Rate 100 83 Respiratory 18 16 Rate Blood Pressure 136/83 145/89 O2 Sat by Pulse 100 97 Oximetry Medical Decision Making - Medical Decision Making Was pt. sent in by a medical professional or institution (, PA, ORDER DISPATCHER CHIEF, urgent care, hospital, or correction...) When possible be specific @ -No Did you speak to anyone other than the patient for history (EMS, parent, family, police, friend...)? What history was obtained from this source @ -No Did you review nursing and triage notes (agree or disagree)? Why? @ -I reviewed and agree with nursing and triage notes Were old charts reviewed (outside hosp., previous admission, EMS record, old EKG, old radiological studies, urgent care reports/EKG's, correction records)? Report findings @ -No old charts were reviewed Differential Diagnosis (chest pain, altered mental status, abdominal pain women, abdominal pain men, vaginal bleeding, weakness, fever, dyspnea, syncope, headache, dizziness, GI bleed, back pain, seizure, CVA, palpatations, mental health, musculoskeletal)? @ -Differential Abdominal Pain Women: Appendicitis, Cholecystitis, diverticulosis, ischemic bowel, pancreatitis, hepatitis, UTI, gastroenteritis, AAA, incarcerated hernia, bowel obstruction, constipation, inflammatory bowel, hepatitis, peptic ulcer disease, splenic infarction, perforated viscus, vulvitis, ovarian torsion, PID, kidney stone, placenta abruption, this is not meant to be an all-inclusive list EKG interpreted by me (3pts min.). @ -Not done X-rays interpreted by me (1pt min.). @ -None done CT interpreted by me (1pt min.). @ -Yes and demonstrates enteritis versus ileus U/S interpreted by me (1pt. min.). @ -None done What testing was considered but not performed or refused? (CT, X-rays, U/S, labs)? Why? @ -None What meds were considered but not given or refused? Why? @ -None Did you discuss the management of the patient with other professionals (professionals i.e. , PA, ORDER DISPATCHER CHIEF, lab, RT, psych nurse, social security benefits interviewer, vacuum applicator operator, teacher, senior credit officer, corrections caseworker)? Give summary @ -No Was smoking cessation discussed for >3mins.? @ -No Was critical care preformed (if so, how long)? @ -No Were there social determinants of health that impacted care today? How? (Homelessness, low income, unemployed, alcoholism, drug addiction, transportation, low edu. Level, literacy, decrease access to med. care, snf, rehab)? @ -No Was there de-escalation of care discussed even if they declined (Discuss DNR or withdrawal of care, Hospice)? DNR status @ -No What co-morbidities impacted this encounter? (DM, HTN, Smoking, COPD, CAD, Cancer, CVA, ARF, Chemo, Hep., AIDS, mental health diagnosis, sleep apnea, morbid obesity)? @ -None Was patient admitted / discharged? Hospital course, mention meds given and route, prescriptions, significant lab abnormalities, going to OR and other pertinent info. @ -Upon arrival patient was placed into room 19. Thorough history and physical exam was performed. Laboratory studies were completed. Patient given IV fluids, Zofran and Lomotil. CT was performed which demonstrates enteritis versus ileus. I discussed this with the patient. Offered admission however patient states she feels comfortable going home at this time. I stressed that she needs to follow-up with GI or surgery to have an EGD and colonoscopy. Patient understood this. Given written and verbal discharge instructions and discharged home in stable condition Undiagnosed new problem with uncertain prognosis? @ -Yes Drug Therapy requiring intensive monitoring for toxicity (Heparin, Nitro, Insulin, Cardizem)? @ -No Were any procedures done? @ -No Diagnosis/symptom? @ -Acute exacerbation of nausea, vomiting and diarrhea Acute, or Chronic, or Acute on Chronic? @ -Acute on chronic Uncomplicated (without systemic symptoms) or Complicated (systemic symptoms)? @ -Complicated Side effects of treatment? @ -No Exacerbation, Progression, or Severe Exacerbation? @ -Yes Poses a threat to life or bodily function? How? (Chest pain, USA, OR, pneumonia, PE, COPD, DKA, ARF, appy, cholecystitis, CVA, Diverticulitis, Homicidal, Suicidal, threat to staff... and all critical care pts) @ -No - Lab Data Result diagrams: 10/07/23 16:53 10/07/23 16:53 Lab Results 10/07/23 10/07/23 10/07/23 Range/Units 16:53 16:53 16:53 WBC 10.7 H (3.8-10.6) k/uL RBC 5.19 (3.80-5.40) m/uL Hgb 16.9 H (11.4-16.0) gm/dL Hct 47.3 H (34.0-46.0) % MCV 91.0 (80.0-100.0) fL MCH 32.5 (25.0-35.0) pg MCHC 35.7 (31.0-37.0) g/dL RDW 12.4 (11.5-15.5) % Plt Count 207 (150-450) k/uL MPV 9.3 Neutrophils % 79 % Lymphocytes % 13 % Monocytes % 5 % Eosinophils % 2 % Basophils % 0 % Neutrophils # 8.4 H (1.3-7.7) k/uL Lymphocytes # 1.4 (1.0-4.8) k/uL Monocytes # 0.5 (0-1.0) k/uL Eosinophils # 0.2 (0-0.7) k/uL Basophils # 0.0 (0-0.2) k/uL Sodium 141 (137-145) mmol/L Potassium 3.9 (3.5-5.1) mmol/L Chloride 105 (98-107) mmol/L Carbon Dioxide 26 (22-30) mmol/L Anion Gap 10 mmol/L BUN 16 (7-17) mg/dL Creatinine 0.59 (0.52-1.04) mg/dL Est GFR (CKD-EPI)AfAm >90 (>60 ml/min/1.73 sqM) Est GFR (CKD-EPI)NonAf >90 (>60 ml/min/1.73 sqM) Glucose 152 H (74-99) mg/dL Plasma Lactic Acid Triston (0.7-2.0) mmol/L Calcium 10.0 (8.4-10.2) mg/dL Total Bilirubin 0.6 (0.2-1.3) mg/dL AST 25 (14-36) U/L ALT 27 (4-34) U/L Alkaline Phosphatase 80 (38-126) U/L Total Protein 7.1 (6.3-8.2) g/dL Albumin 4.5 (3.5-5.0) g/dL Lipase 50 (23-300) U/L Urine Color Yellow Urine Appearance Turbid H (Clear) Urine pH 5.5 (5.0-8.0) Ur Specific [place] 1.032 (1.001-1.035) Urine Protein Trace H (Negative) Urine Glucose (UA) Negative (Negative) Urine Ketones 1+ H (Negative) Urine Blood Negative (Negative) Urine Nitrite Negative (Negative) Urine Bilirubin Negative (Negative) Urine Urobilinogen 2.0 (<2.0) mg/dL Ur Leukocyte Esterase Trace H (Negative) 10/07/23 Range/Units 16:53 WBC (3.8-10.6) k/uL RBC (3.80-5.40) m/uL Hgb (11.4-16.0) gm/dL Hct (34.0-46.0) % MCV (80.0-100.0) fL MCH (25.0-35.0) pg MCHC (31.0-37.0) g/dL RDW (11.5-15.5) % Plt Count (150-450) k/uL MPV Neutrophils % % Lymphocytes % % Monocytes % % Eosinophils % % Basophils % % Neutrophils # (1.3-7.7) k/uL Lymphocytes # (1.0-4.8) k/uL Monocytes # (0-1.0) k/uL Eosinophils # (0-0.7) k/uL Basophils # (0-0.2) k/uL Sodium (137-145) mmol/L Potassium (3.5-5.1) mmol/L Chloride (98-107) mmol/L Carbon Dioxide (22-30) mmol/L Anion Gap mmol/L BUN (7-17) mg/dL Creatinine (0.52-1.04) mg/dL Est GFR (CKD-EPI)AfAm (>60 ml/min/1.73 sqM) Est GFR (CKD-EPI)NonAf (>60 ml/min/1.73 sqM) Glucose (74-99) mg/dL Plasma Lactic Acid Triston 1.3 (0.7-2.0) mmol/L Calcium (8.4-10.2) mg/dL Total Bilirubin (0.2-1.3) mg/dL AST (14-36) U/L ALT (4-34) U/L Alkaline Phosphatase (38-126) U/L Total Protein (6.3-8.2) g/dL Albumin (3.5-5.0) g/dL Lipase (23-300) U/L Urine Color Urine Appearance (Clear) Urine pH (5.0-8.0) Ur Specific [place] (1.001-1.035) Urine Protein (Negative) Urine Glucose (UA) (Negative) Urine Ketones (Negative) Urine Blood (Negative) Urine Nitrite (Negative) Urine Bilirubin (Negative) Urine Urobilinogen (<2.0) mg/dL Ur Leukocyte Esterase (Negative) Disposition Clinical Impression: Nausea and vomiting, Diarrhea Disposition: HOME SELF-CARE Condition: Stable Instructions (If sedation given, give patient instructions): Acute Nausea and Vomiting (ED), Chronic Diarrhea (ED) Additional Instructions: Please take the Zofran for nausea and the Lomotil for diarrhea. Follow-up with the surgeon or GI doctor to have an EGD and colonoscopy performed. Return for any new or worsening symptoms Prescriptions: Diphenoxylate HCl/Atropine [Lomotil 2.5-0.025 mg Tablet] 2 tab PO QID PRN #24 tab PRN Reason: Diarrhea Ondansetron Odt [Zofran Odt] 4 mg PO Q8HR PRN #20 tab PRN Reason: Nausea Is patient prescribed a controlled substance at d/c from ED?: No Referrals: Noble Dougherty DO [Primary Care Provider] - 1-2 days Meli Harmon MD [STAFF PHYSICIAN] - 1-2 days Shashank Hnedrix MD [Medical Doctor] - 1-2 days Time of Disposition: 19:22
[2023-10-07] MEDS: DIPHENOX-ATROP STARTER PACK 8 TAB BTL PO STA (19:33)
[2023-10-07] MEDS: ONDANSETRON 4 MG ODT STARTER PACK 2 TAB BTL PO STA (19:33)
[2023-10-07 19:42] VITALS: BP 145/89; PULSE 83; RESP 16
== END 2023-10-07 19:39 | disposition home or self-care (01) ==
LOC: EC 15:17
DX: K76.0 Fatty (change of) liver, not elsewhere classified (principal); R19.7 Diarrhea, unspecified; E11.9 Type 2 diabetes mellitus without complications; E78.5 Hyperlipidemia, unspecified; F41.9 Anxiety disorder, unspecified; F17.200 Nicotine dependence, unspecified, uncomplicated; Z79.899 Other long term (current) drug therapy; Z79.82 Long term (current) use of aspirin; Z79.84 Long term (current) use of oral hypoglycemic drugs; Z91.09 Other allergy status, other than to drugs and biological substances; Z91.040 Latex allergy status
CPT/HCPCS: 36415; 80053; 83605; 83690; 85025; 81001; 71260; 74177; 99284; 96374; 96361; J2405; S0119; Q9967

== ENCOUNTER 2023-12-27 08:15 | Day surgery (SDC) | payer MEDICARE, OTHER ==
[~2023-12-27 08:15] MED LIST changes: -LACTATED RINGERS 1,000 ML IV SCH
[2023-12-27] MEDS: LACTATED RINGERS 1,000 ML IV SCH (08:48)
[2023-12-27] MEDS ORDERED: PROPOFOL 10 MG/ML 20 ML VIAL IV ONE (08:51)
--- NOTE | 2023-12-27 08:57 | P.GSHP ---
History of Present Illness H&P Date: 12/27/23 Chief Complaint: Change in bowel habits 58-year-old female here for colonoscopy. Last colonoscopy 4 to 5 years ago. Over the last few months patient has had increasing diarrhea. Sometimes uncontrollable. No rectal bleeding. Past Medical History Past Medical History: Cancer, COPD, Diabetes Mellitus, Hyperlipidemia, Musculoskeletal Disorder, Neurologic Disorder Additional Past Medical History / Comment(s): , occipital neuralgia, autoimmune disorder of the connective tissue, breast cancer- chemo pills > 1 yr ago. Mass in lower abdomen,will be coming in to have it checked. recent diarrhea and incontinence. History of Any Multi-Drug Resistant Organisms: None Reported Past Surgical History: Section, Cholecystectomy, Hysterectomy Additional Past Surgical History / Comment(s): masectomy double, CRISTI procedure, TAHBSO, partial reconstruction, colonoscopy Past Anesthesia/Blood Transfusion Reactions: No Reported Reaction Smoking Status: Current every day smoker - Past Family History Mother Family Medical History: Cancer Father Family Medical History: Myocardial Infarction ([place]) Medications and Allergies Home Medications Medication Instructions Recorded Confirmed Type Albuterol Inhaler [Ventolin 2 puff INHALATION Q4H PRN 10/23/14 12/27/23 History Inhaler] Cetirizine HCl [Zyrtec] 10 mg PO DAILY 03/13/20 12/27/23 History Dulaglutide [Trulicity] 1.5 mg SQ MO 03/13/20 12/27/23 History Gabapentin [Neurontin] 600 mg PO BID PRN 03/13/20 12/27/23 History Vilazodone HCl [Viibryd] 20 mg PO DAILY PRN 03/13/20 12/27/23 History Ibuprofen [Motrin] 600 mg PO Q8HR PRN #30 tab 08/02/22 12/27/23 Rx Diphenoxylate HCl/Atropine 2 tab PO QID PRN #24 tab 10/07/23 12/27/23 Rx [Lomotil 2.5-0.025 mg Tablet] Ondansetron Odt [Zofran Odt] 4 mg PO Q8HR PRN #20 tab 10/07/23 12/27/23 Rx Amitriptyline HCl 10 mg PO HS 12/22/23 12/27/23 History Evolocumab [Repatha Sureclick] 1 injection SQ Q14D 12/22/23 12/27/23 History Montelukast [Singulair] 10 mg PO HS 12/22/23 12/27/23 History Allergies Allergy/AdvReac Type Severity Reaction Status Date / Time adhesive tape Allergy Rash/Hives Verified 12/27/23 08:35 latex Allergy Rash/Hives Verified 12/27/23 08:35 Surgical - Exam Vital Signs Temp Pulse Resp BP Pulse Ox 97. F L 75 16 130/63 96 12/27/23 08:48 12/27/23 08:48 12/27/23 08:48 12/27/23 08:48 12/27/23 08:48 Physical exam: General: Well-developed, well-nourished HEENT: Normocephalic, sclerae nonicteric Abdomen: Nontender, nondistended Extremities: No edema Neuro: Alert and oriented Assessment and Plan (1) Change in bowel habits Narrative/Plan: Will proceed with colonoscopy at this time Current Visit: No Status: Acute Code(s): R19.4 - CHANGE IN BOWEL HABIT SNOMED Code(s): 28203400
[2023-12-27 08:59] LABS: Glucose,Whole Blood 144 mg/dL (70-110)
--- NOTE | 2023-12-27 09:09 | P.PCN ---
Date of Procedure: 12/27/23 Procedure(s) Performed: PREOPERATIVE DIAGNOSIS: Change in bowel habits POSTOPERATIVE DIAGNOSIS: Normal exam PROCEDURE: Colonoscopy with random biopsy ANESTHESIA: MAC SURGEON: Shashank Hendrix M.D. SPECIMENS: Random colon ENDOSCOPIC PROCEDURE: The patient was placed on the endoscopy table in the left decubitus position. The Olympus colonoscope was inserted into the anus and passed under direct visualization to the base of the cecum. The appendiceal orifice was visualized. From that point the scope was slowly withdrawn inspecting all surfaces carefully. There were no neoplastic inflammatory or polypoid lesions throughout the cecum, ascending, transverse, descending, sigmoid and rectum. There was no visible diverticulosis noted. Random biopsies were taken throughout the colon. Digital rectal examination was normal. The patient was taken to the recovery room in stable condition per anesthesia guidelines. RECOMMENDATIONS: Await biopsy results. Repeat colonoscopy 10 years.
[2023-12-27 09:35] LABS: Glucose,Whole Blood 135 mg/dL (70-110)
[2023-12-27 09:46] VITALS: BP 123/65; PULSE 65; RESP 18
== END 2023-12-27 09:43 | disposition home or self-care (01) ==
LOC: ORWHC2ENDO 08:15
PROVIDERS: ATTEND Surgery
DX: R19.4 Change in bowel habit (principal); J44.9 Chronic obstructive pulmonary disease, unspecified; E78.5 Hyperlipidemia, unspecified; E11.9 Type 2 diabetes mellitus without complications; Z98.890 Other specified postprocedural states; Z98.891 History of uterine scar from previous surgery; Z90.710 Acquired absence of both cervix and uterus; Z90.49 Acquired absence of other specified parts of digestive tract; F17.200 Nicotine dependence, unspecified, uncomplicated; Z82.49 Family history of ischemic heart disease and other diseases of the circulatory system; Z79.51 Long term (current) use of inhaled steroids; Z91.040 Latex allergy status; Z79.899 Other long term (current) drug therapy
CPT/HCPCS: 88305; 45380; J2704

== ENCOUNTER → 2023-12-29 | Outpatient (CLI) | payer MEDICARE, OTHER ==
[2023-12-29 11:08] LABS: Basophils % (A) 0 %; Eosinophils # (A) 0.1 k/uL (0-0.7); Eosinophils % (A) 1 %; HCT 48.2 % (34.0-46.0); HGB 16.1 gm/dL (11.4-16.0); Lymphocytes # (A) 1.2 k/uL (1.0-4.8); Lymphocytes % (A) 17 %; MCH 30.8 pg (25.0-35.0); MCHC 33.5 g/dL (31.0-37.0); MCV 92.1 fL (80.0-100.0); Mean Platelet Volume 9.8; Monocytes # (A) 0.4 k/uL (0-1.0); Monocytes % (A) 5 %; Neutrophils # (A) 5.4 k/uL (1.3-7.7); Neutrophils % (A) 75 %; Platelet Count 204 k/uL (150-450); RBC 5.23 m/uL (3.80-5.40); RDW 12.8 % (11.5-15.5); WBC 7.2 k/uL (3.8-10.6)
[2023-12-29 12:01] LABS: ALT 35 U/L (4-34); AST 36 U/L (14-36); African American GFR (CKD) >90 (>60 ml/min/1.73 sqM); Albumin 4.7 g/dL (3.5-5.0); Albumin/Globulin Ratio 1.7; Alkaline Phosphatase 72 U/L (38-126); Anion Gap 4 mmol/L; Blood Urea Nitrogen 12 mg/dL (7-17); Calcium 9.7 mg/dL (8.4-10.2); Carbon Dioxide 28 mmol/L (22-30); Chloride 107 mmol/L (98-107); Globulin 2.8 g/dL; Glucose 135 mg/dL (74-99); Magnesium 1.7 mg/dL (1.6-2.3); Non-African American GFR(CKD) >90 (>60 ml/min/1.73 sqM); Potassium 4.5 mmol/L (3.5-5.1); Sodium 139 mmol/L (137-145); Total Bilirubin 0.5 mg/dL (0.2-1.3); Total Protein 7.5 g/dL (6.3-8.2)
[2023-12-29 20:57] LABS: Chol/HDL Ratio 5.73 Ratio
--- NOTE | 2023-12-31 16:51 | CT ---
EXAMINATION TYPE: CT abdomen pelvis w con DATE OF EXAM: 12/29/2023 COMPARISON: 324 INDICATION: Abdominal/pelvic mass, eval from last scan DLP: 1809 mGycm, Automated exposure control for dose reduction was used. CONTRAST: 100 mL of Isovue 300. Study performed with Oral Contrast TECHNIQUE: Axial images were obtained from above the diaphragm to the pubic rami in the axial plane a t 5 mm thick sections. Reconstructed images are reviewed on the computer in the coronal plane. FINDINGS: Limited CT sections are obtained the lung bases. The lung bases are clear. CT ABDOMEN: Liver: There is moderate fatty infiltration of the liver. No discrete mass is evident. Spleen: Normal Pancreas: Normal Adrenal glands: The adrenal glands are normal. Gallbladder: Surgically absent. Kidneys: No masses are evident. No hydronephrosis is present. No cysts are present. Delayed images were obtained through the kidneys, which remain unremarkable. Aorta: Vascular calcification is within the aorta. Inferior vena cava: Normal. CT PELVIS: Loops of bowel within the abdomen and pelvis are normal. There are loops of bowel which are incom pletely distended or lack oral contrast limiting their evaluation. Appendix: Normal as visualized. Urinary bladder: Normal. Genitourinary structures: Uterus and ovaries are not identified. Osseous structures: No suspicious lytic or sclerotic lesions. Previous 1.2 cm nodule within the right iliac chain region currently measures 0.8 cm, diminished from comparison. No new or enlarging lymph nodes are identified. IMPRESSION: 1. Diminished size of nodule within the right hemipelvis. 2. No suspicious acute changes within the abdomen or pelvis. 3. Moderate fatty infiltration of the liver is present
== END | disposition home or self-care (01) ==
LOC: RADCTMAIN 10:23
PROVIDERS: ATTEND Internal Medicine
DX: K76.0 Fatty (change of) liver, not elsewhere classified (principal); E11.40 Type 2 diabetes mellitus with diabetic neuropathy, unspecified; E78.5 Hyperlipidemia, unspecified; N94.89 Other specified conditions associated with female genital organs and menstrual cycle; R19.00 Intra-abdominal and pelvic swelling, mass and lump, unspecified site; Z90.49 Acquired absence of other specified parts of digestive tract
CPT/HCPCS: 80061; 80053; 84443; 83735; 85025; 74177; 36415; Q9967

== ENCOUNTER → 2024-04-30 | Outpatient (CLI) | payer MEDICARE, OTHER ==
[2024-04-30 07:32] LABS: African American GFR (CKD) >90 (>60 ml/min/1.73 sqM); Blood Urea Nitrogen 17 mg/dL (7-17); Non-African American GFR(CKD) >90 (>60 ml/min/1.73 sqM)
--- NOTE | 2024-04-30 09:00 | CT ---
EXAMINATION TYPE: CT pelvis w con CT DLP: 1154 mGycm, Automated exposure control for dose reduction was used. DATE OF EXAM: 04/30/2024 8:52 AM COMPARISON: 12/29/2023 CLINICAL INDICATION: Female, 58 years old with history of R19.00 PELVIS MASS; pelvic nodule f/u TECHNIQUE: Axial CT pelvis w con;Sagittal and coronal reformats were created on a separate workstati on. Contrast used:100 mL of Isovue 300 with IV Contrast, (none if empty) Oral contrast used: with Oral Contrast (none if empty) FINDINGS: BLADDER: Unremarkable REPRODUCTIVE: The uterus is surgically absent. The ovaries are not definitively visualized. ABDOMEN & PELVIS STOMACH AND BOWEL: No evidence of bowel obstruction. The appendix is normal. PERITONEUM/RETROPERITONEUM: No evidence of pneumoperitoneum or free fluid. VASCULATURE: No evidence of aortic aneurysm. MUSCULOSKELETAL: No acute osseous abnormalities LYMPH NODES: No gross evidence for lymphadenopathy., Right pelvic lymph node not significantly change d measuring up to 7 mm in short axis. SOFT TISSUE/ABDOMINAL WALL: Unremarkable IMPRESSION: Right pelvic lymph nodes and/or sequela of postsurgical change-is not significantly changed from 824 and likely benign. [facility], , 04/30/2024 8:58 AM
== END | disposition home or self-care (01) ==
LOC: RADCTMAIN 06:46
PROVIDERS: ATTEND Internal Medicine
DX: R19.00 Intra-abdominal and pelvic swelling, mass and lump, unspecified site (principal)
CPT/HCPCS: 36415; 72193; 82565; 84520

== ENCOUNTER → 2024-08-17 | Outpatient (CLI) | payer MEDICARE, OTHER ==
[2024-08-17 10:36] LABS: ALT 27 U/L (8-44); AST 20 U/L (13-35); Albumin 4.4 g/dL (3.8-4.9); Alkaline Phosphatase 111 U/L (41-126); BUN/Creat Ratio 20.33 Ratio (12.00-20.00); Blood Urea Nitrogen 12.2 mg/dL (9.0-27.0); Calcium 9.6 mg/dL (8.7-10.3); Carbon Dioxide 27.3 mmol/L (21.6-31.8); Chloride 101 mmol/L (96-109); Chol/HDL Ratio 6.93 Ratio; Creatine Kinase 55 U/L (26-186); Globulin 2.2 g/dL (1.6-3.3); Glucose 341 mg/dL (70-110); LDL Cholesterol,Calculated 196.3 mg/dL (0.0-131.0); Magnesium 1.9 mg/dL (1.5-2.4); Potassium 4.6 mmol/L (3.5-5.5); Sodium 139 mmol/L (135-145); Total Bilirubin 0.3 mg/dL (0.3-1.2); Total Protein 6.6 g/dL (6.2-8.2)
[2024-08-17 11:30] LABS: Basophils # (A) 0.03 X 10*3/uL (0.00-0.10); Basophils % (A) 0.7 %; Eosinophils # (A) 0.11 X 10*3/uL (0.04-0.35); Eosinophils % (A) 2.7 %; HCT 48.4 % (37.2-46.3); HGB 16.3 g/dL (12.0-15.0); Lymphocytes # (A) 1.32 X 10*3/uL (0.90-5.00); Lymphocytes % (A) 31.8 %; MCH 30.1 pg (27.0-32.0); MCHC 33.7 g/dL (32.0-37.0); MCV 89.3 FL (80.0-97.0); Mean Platelet Volume 12.6 FL (9.5-12.2); Monocytes # (A) 0.38 X 10*3/uL (0.20-1.00); Monocytes % (A) 9.2 %; NRBC Per 100 WBC 0 X 10*3/uL (0.00-0.01); Neutrophils # (A) 2.28 X 10*3/uL (1.80-7.70); Neutrophils % (A) 54.9 %; Platelet Count 169 X 10*3/uL (140-440); RBC 5.42 X 10*6/uL (4.10-5.20); RDW 12.5 % (11.5-14.5); WBC 4.15 X 10*3/uL (4.50-10.00)
== END | disposition home or self-care (01) ==
LOC: LABWHC1 07:12
PROVIDERS: ATTEND Internal Medicine
DX: E11.40 Type 2 diabetes mellitus with diabetic neuropathy, unspecified (principal); E78.5 Hyperlipidemia, unspecified
CPT/HCPCS: 36415; 80053; 80061; 82550; 83036; 83735; 84443; 85025

== ENCOUNTER → 2024-10-08 | Outpatient (CLI) | payer MEDICARE ==
--- NOTE | 2024-10-08 09:09 | CTL ---
EXAMINATION TYPE: CT Low Dose Lung DATE OF EXAM ORDERED: 10/08/2024 COMPARISON: Prior chest CT October 07, 2023 and older CTs. CLINICAL INDICATION: Female, 58 years old with history of Z12.2 LUNG CANCER SCREENING; [facility], current s moker 1PPD x30 years., Lung cancer screening, History of Smoking/tobacco use. TECHNIQUE: Low dose computed tomography scan was performed through the chest at 1 mm thick sections a nd reconstructed images in multiple planes at 1 mm and [address] DLP: 135.[address] CTDI: 3.8 mGy Automated exposure control for dose reduction was used. CT DIAGNOSTIC QUALITY: Satisfactory FINDINGS: Nodules: A few scattered small nodules redemonstrated. Some for reference are noted below. RUL: None. RML: There is 2 to 3 mm right middle lobe nodule image 192. RLL: None. JADEN: None. LLL: There is 4 mm nodule axial image 180. No new or enlarging greater than 5 mm pulmonary nodules.. LUNGS: COPD: Severity: None Fibrosis: Severity: None Lymph nodes: None Other findings: None RIGHT PLEURAL SPACE: Effusion: None Calcification: None Thickening: None Pneumothorax: None LEFT PLEURAL SPACE: Effusion: None Calcification: None Thickening: None Pneumothorax: None HEART: Heart Size: Normal Coronary Calcification: Tiny Pericardial Effusion: None OTHER FINDINGS: Upper abdomen: Cholecystectomy clips are redemonstrated Bony thorax: Scoliotic curvature again seen Supraclavicular region: None Other: None IMPRESSION: Stable small bilateral nodules. No new or enlarging greater than [address] LUNG RAD AND [address] CHEST RECOMMENDATION: Lung-Rad 2 Benign Appearance or Behavior: Continue annual sc reening with LDCT in 12 months. S Modifier (other clinically significant findings): None [facility], , 10/08/2024 9:07 AM
== END | disposition home or self-care (01) ==
LOC: RADCTMAIN 07:25
PROVIDERS: ATTEND Internal Medicine
DX: Z12.2 Encounter for screening for malignant neoplasm of respiratory organs (principal); F17.210 Nicotine dependence, cigarettes, uncomplicated; R91.8 Other nonspecific abnormal finding of lung field
CPT/HCPCS: 71271